=== PATIENT | female | born 1970 | race Caucasian/White ===

== ENCOUNTER 2017-05-07 09:06 | Outpatient (CLI) | payer OTHER ==
[2017-05-07] MEDS: ALBUTEROL NEB 2.5 MG/3 ML INH ONE (09:30)
== END 2017-05-07 09:07 | disposition home or self-care (01) ==
LOC: RT 09:06
DX: J44.9 Chronic obstructive pulmonary disease, unspecified (principal)
CPT/HCPCS: 94060; J7613

== ENCOUNTER 2017-10-26 04:18 | Outpatient (CLI) | payer OTHER | END 2017-10-26 04:19 | disposition critical access hospital (66) | LOC: EMS 04:18 | PROVIDERS: ATTEND Surgery | DX: R07.9 Chest pain, unspecified (principal) | CPT/HCPCS: A0425; A0427 ==

== ENCOUNTER 2017-10-26 04:40 | Emergency (ER) | payer OTHER ==
--- NOTE | 2017-10-26 05:04 | ED Physician Documentation ---
PD HPI CHEST PAIN - Stated complaint Stated Complaint: L SIDED CHEST PN - Chief complaint Chief Complaint: Cardiac - History obtained from History obtained from: Patient - History of Present Illness Timing - onset: How many days ago (3-4 days) Timing - duration: Minutes, Hours, Other (episodes last minutes, sometimes hours ) Timing - details: Intermittant Quality: Pain Radiation: Other (no radiation) Improved by: Nothing Worsened by: Other (no exacerbating factors) Associated symptoms: No: Shortness of air, Diaphoresis, Nausea, Vomiting, Feeling faint / dizzy, General Weakness, Palpitations, Cough Similar symptoms before: No diagnosis (cardiac evaluation with nuc. ST 2014 was unremarkable) Recently seen: Clinic (evaluated at [facility] Wednesday 10/24 for chest pain as well as abd. pain (abd. pain has resolved; patient says testing included CT A/P which was unremarkable).) Review of Systems Constitutional: reports: Reviewed and negative Cardiac: reports: Chest pain / pressure. denies: Palpitations, Pedal edema, Calf pain Respiratory: reports: Reviewed and negative GI: reports: Reviewed and negative : denies: Dysuria, Frequency Musculoskeletal: reports: Reviewed and negative PD PAST MEDICAL HISTORY - Past Medical History Past Medical History: Yes Psych: Depression, Anxiety - Past Surgical History Past Surgical History: Yes General: Cholecystectomy, Colonoscopy /[employer]: section HEENT: Tonsil/Adenoidectomy - Present Medications Home Medications: Ambulatory Orders Medication Instructions Recorded Confirmed Fluoxetine HCl [Prozac] 1 cap PO DAILY 10/26/17 10/26/17 oxyCODONE/ACET 5/325 [Percocet 5 1 - 2 each PO Q6H PRN #14 tablet 10/26/17 mg/325 mg] traMADol [Ultram] 50 - 100 mg PO Q6H PRN #14 tablet 10/26/17 - Allergies Allergies/Adverse Reactions: Allergies Allergy/AdvReac Type Severity Reaction Status Date / Time sulfamethoxazole Allergy Rash Verified 10/26/17 05:03 [From Septra] sumatriptan [From Imitrex] Allergy Respiratory Verified 10/26/17 05:02 trimethoprim [From Septra] Allergy Rash Verified 10/26/17 05:03 typhoid vaccine Allergy Respiratory Verified 10/26/17 05:02 - Social History Does the pt smoke?: Yes Smoking Status: Current every day smoker Does the pt drink ETOH?: No Does the pt have substance abuse?: No - Immunizations Immunizations are current?: Yes - POLST Patient has POLST: No PD ED PE NORMAL - Vitals Vital signs reviewed: Yes - General General: Alert and oriented X 3, No acute distress, Well developed/nourished - HEENT HEENT: Moist mucous membranes - Neck Neck: Supple, no meningeal sign - Cardiac Cardiac: RRR, No murmur, No gallop, No rub - Respiratory Respiratory: No respiratory distress, Clear bilaterally - Abdomen Abdomen: Soft, Non tender - Derm Derm: Normal color, Warm and dry, No rash - Extremities Extremities: No edema Results - Vitals Vitals: Vital Signs - 24 hr 10/26/17 10/26/17 10/26/17 04:40 05:18 05:28 Temperature 36.0 C L Heart Rate 67 62 67 Respiratory 14 16 20 Rate Blood Pressure 133/74 H 124/66 144/70 H O2 Saturation 96 96 96 10/26/17 10/26/17 10/26/17 06:11 06:49 06:51 Temperature Heart Rate 67 51 L 43 L Respiratory 20 22 23 Rate Blood Pressure 124/68 138/63 H 130/64 O2 Saturation 96 96 95 10/26/17 10/26/17 10/26/17 07:21 08:55 09:41 Temperature Heart Rate 50 L 65 49 L Respiratory 16 16 18 Rate Blood Pressure 129/76 123/65 123/59 L O2 Saturation 95 96 97 Oxygen O2 Source Room air - EKG (time done) No standard instances Rate: Rate (enter#) Rhythm: NSR [place]: LAD Intervals: Normal [place] QRS: LVH Ischemia: Normal ST segments, T wave inversion (III, flat aVF) - Labs Labs: Laboratory Tests 10/26/17 10/26/17 10/26/17 05:13 05:13 05:13 WBC 11.3 H RBC 4.47 Hgb 12.9 Hct 39.4 MCV 88.2 MCH 28.9 MCHC 32.8 RDW 13.5 Plt Count 272 MPV 8.6 Neut # 6.8 H Lymph # 3.0 [place] # 1.1 H Eos # 0.4 Baso # 0.1 Absolute Nucleated RBC 0.00 Nucleated RBC % 0.0 D-Dimer Sodium 138 Potassium 3.6 Chloride 105 Carbon Dioxide 22 Anion Gap 11.0 BUN 10 Creatinine 0.8 Estimated GFR (MDRD) 77 L Glucose 120 H Calcium 8.9 Total Bilirubin 0.6 AST 16 ALT 14 Alkaline Phosphatase 68 Troponin I < 0.04 Total Protein 6.6 L Albumin 3.4 Globulin 3.2 Albumin/Globulin Ratio 1.1 Lipase 25 10/26/17 05:13 WBC RBC Hgb Hct MCV MCH MCHC RDW Plt Count MPV Neut # Lymph # [place] # Eos # Baso # Absolute Nucleated RBC Nucleated RBC % D-Dimer 603.7 H Sodium Potassium Chloride Carbon Dioxide Anion Gap BUN Creatinine Estimated GFR (MDRD) Glucose Calcium Total Bilirubin AST ALT Alkaline Phosphatase Troponin I Total Protein Albumin Globulin Albumin/Globulin Ratio Lipase - Rads (name of study) chest xray Radiology: Prelim report reviewed, See rad report PD MEDICAL DECISION MAKING - ED course Complexity details: reviewed results, re-evaluated patient, considered differential, d/w patient Departure - Departure Disposition: 01 Home, Self Care Clinical Impression: Chest pain Condition: Good Instructions: ED Chest Pain Atypical Unkn Cause Follow-Up: ANDREW Burns [Provider Group] Prescriptions: oxyCODONE/ACET 5/325 [Percocet 5 mg/325 mg] 1 - 2 each PO Q6H PRN #14 tablet PRN Reason: Pain traMADol [Ultram] 50 - 100 mg PO Q6H PRN #14 tablet PRN Reason: Pain Comments: Take the tramadol for mild-moderate pain. You can instead take the percocet if the pain is severe or uncontrolled by the tramadol, although you should not take these medications within 4 hours of each other (6 hours if you take two tablets instead of one). Forms: Activity restrictions Discharge Date/Time: 10/26/17 09:53
[2017-10-26 05:18] LABS: BASOPHILS # (AUTO) 0.1 10^3/uL (0.0-0.1); BASOPHILS % (AUTO) 0.9 %; EOSINOPHILS # (AUTO) 0.4 10^3/uL (0.0-0.7); EOSINOPHILS % (AUTO) 3.6 %; HCT - HEMATOCRIT 39.4 % (37.0-47.0); HGB - HEMOGLOBIN 12.9 g/dL (12.0-16.0); LYMPHOCYTES % (AUTO) 26.4 %; MEAN CORPUSCULAR HEMOGLOBIN 28.9 pg (27.0-31.0); MEAN CORPUSCULAR HGB CONC 32.8 g/dL (32.0-36.0); MEAN CORPUSCULAR VOLUME 88.2 fL (81.0-99.0); MEAN PLATELET VOLUME 8.6 fL (7.9-10.8); MONOCYTES # (AUTO) 1.1 10^3/uL (0.0-1.0); MONOCYTES % (AUTO) 9.5 %; NEUTROPHILS # (AUTO) 6.8 10^3/uL (1.5-6.6); NEUTROPHILS % (AUTO) 59.6 %; RED BLOOD COUNT 4.47 10^6/uL (4.20-5.40); RED CELL DISTRIBUTION WIDTH 13.5 % (12.0-15.0); UNCORRECTED WHITE BLOOD COUNT 11.3 x10^3/uL; WHITE BLOOD COUNT 11.3 x10^3/uL (4.8-10.8)
[2017-10-26] MEDS ORDERED: MAG HYDROX/AL HYDROX/SIMETH 30 ML UDC PO STA (05:24)
[2017-10-26] MEDS ORDERED: PHENobarb/HYOSCY/ATROPINE/SCOP 5 ML SYRINGE PO STA (05:24)
[2017-10-26] MEDS ORDERED: LIDOCAINE VISCOUS 2% 15 ML UDC MM STA (05:25)
[2017-10-26] MEDS ORDERED: MAG HYDROX/AL HYDROX/SIMETH 30 ML UDC ONE (05:30)
[2017-10-26] MEDS ORDERED: LIDOCAINE VISCOUS 2% 15 ML UDC MM ONE (05:30)
[2017-10-26] MEDS ORDERED: PHENobarb/HYOSCY/ATROPINE/SCOP 5 ML SYRINGE PO ONE (05:30)
[2017-10-26 05:31] LABS: ALBUMIN/GLOBULIN RATIO 1.1 (1.0-2.2); BILIRUBIN,TOTAL 0.6 mg/dL (0.2-1.0); CALCIUM 8.9 mg/dL (8.5-10.3); CREATININE 0.8 mg/dL (0.4-1.0); POTASSIUM 3.6 mmol/L (3.5-5.0); TOTAL PROTEIN 6.6 g/dL (6.7-8.2)
[2017-10-26] MEDS ORDERED: HYDROmorphone 1 MG/ML SYRINGE IVP STA ×2 (06:18→09:11)
[2017-10-26] MEDS ORDERED: HYDROmorphone 1 MG/ML SYRINGE ONE ×2 (06:27→09:22)
--- NOTE | 2017-10-26 06:53 | XRAY Preliminary Report ---
Exam: XR CHEST 2 VIEW PA/LAT IMPRESSION: No acute cardiopulmonary abnormality demonstrated. [facility] SITE ID: [id number]
--- NOTE | 2017-10-26 06:55 | XRAY Report ---
EXAM: CHEST RADIOGRAPHY EXAM DATE: 10/26/2017 06:46 AM. CLINICAL HISTORY: Chest pain on and off for 3 days, more intense tonight. COMPARISON: None. TECHNIQUE: 2 views. FINDINGS: Lungs/Pleura: No focal opacities evident. No pleural effusion. No pneumothorax. Normal volumes. Mediastinum: Heart and mediastinal contours are unremarkable. Other: Right upper quadrant clips indicate prior cholecystectomy. IMPRESSION: No acute cardiopulmonary abnormality demonstrated. [facility] Referring Provider Line: [phone] SITE ID: [id number]
[2017-10-26] MEDS ORDERED: IOPAMIDOL-300 100 ML VIAL ONE (07:45)
[2017-10-26] MEDS ORDERED: IOPAMIDOL-300 100 ML VIAL IVP ONE ×2 (08:24)
--- NOTE | 2017-10-26 08:53 | CT Report ---
EXAM: CT ANGIOGRAM CHEST EXAM DATE: 10/26/2017 08:25 AM. CLINICAL HISTORY: Chest pain, elevated d-dimer. COMPARISON: Chest x-ray earlier today. TECHNIQUE: Routine helical imaging was performed through the chest in the pulmonary arterial phase. I V Contrast: 80 mL of Isovue 300. Reconstructions: Coronal 3-D MIP reconstructions.Sagittal and may l. In accordance with CT protocol optimization, one or more of the following dose reduction techniques w ere utilized for this exam: automated exposure control, adjustment of mA and/or KV based on patient s ize, or use of iterative reconstructive technique. FINDINGS: Pulmonary Arteries: Diagnostic quality: Adequate through the segmental arteries. No evidence for acute or chronic pulmona ry emboli. RV/LV is within normal limits. There is no interventricular septal bowing. There is no reflux of cont rast material in the IVC. Lungs/Pleura: There is faint nonspecific groundglass opacity noted scattered in both lungs, most prom inent in both lower lobes. A few streaky opacities are also noted in both lower lobes. There are 2 ti ny likely pleural-based nodular densities noted in the posterior inferior right hemithorax seen on ax ial images 86 and 91 of series 5. These measure 56 millimeters in size. No effusions or pneumothorax . Mediastinum: Normal. No cardiac enlargement or adenopathy. No pericardial effusion. Thoracic Aorta: Unremarkable. Upper Abdomen: Patient has evidence of prior cholecystectomy. Otherwise unremarkable. Other: No acute bony abnormality noted. IMPRESSION: 1. No evidence of pulmonary emboli. 2. Nonspecific faint groundglass opacities scattered in both lungs, most prominent in both lower lobe s, along with some more streaky opacities in both lower lobes. These could be due to early edema vers us infectious/inflammatory process. Correlate clinically. There are also 2 tiny likely pleural-based nodular densities in the posterior inferior right hemithorax which could represent some pleural thick ening versus areas of atelectasis or inflammatory change. Follow-up chest CT is recommended in 36 mo nths to show resolution of these findings. 3. Prior cholecystectomy noted. [facility] Referring Provider Line: [phone] SITE ID: [id number]
[2017-10-26 09:41] VITALS: BP 123/59
== END 2017-10-26 09:53 | disposition home or self-care (01) ==
LOC: EDUNIT# → ED 04:40
DX: R07.9 Chest pain, unspecified (principal); F17.200 Nicotine dependence, unspecified, uncomplicated
CPT/HCPCS: 36415; 71020; 71275; 80053; 83690; 84484; 85025; 85379; 93005; 96374; 96376; 99284; A9270; J1170; Q9967